=== PATIENT | female | born 1990 | race Caucasian/White ===

== ENCOUNTER 2020-03-30 10:52 | Inpatient (IN) | payer OTHER ==
--- NOTE | 2020-03-30 11:32 | BHS.RME ---
Substance Use & Tx History - Substance Use History Heroin Substance amount: 3 bags Frequency of use: Daily Substance route: Injection (ex: intravenous or skin popping) Date of Last Use: 03/30/20 Nicotine Substance amount: 4 cigs Frequency of use: Daily Substance route: Smoking Date of Last Use: 03/30/20 Cocaine- Powder Substance amount: $10-20 Frequency of use: Less than 3 times per week Date of Last Use: 03/29/20 Physical/Psych/Mental Status - Behavior General Behavior: Decreased activity Eye Contact: Normal - Cooperativeness Cooperativeness: Cooperative - Thinking Thought Processes: Tight Thought content: Future oriented - Physical Health Problems Is patient presently having any pain?: No Does patient presently have any injuries (include location): No Does patient currently have a fever: No COWS - Scale Resting Pulse: 1= [place] 81-100 Sweatin=Flushed/Facial Moisture Restless Observation: 1= Difficult to Sit Still Pupil Size: 0= Normal to Room Light Bone or Joint Aches: 1= Mild Discomfort Runny Nose/ Eye Tearin= Nasal Congestion GI Upset > 30mins: 0= None Tremor Observation: 2= Slight Tremor Visible Yawning Observation: 0= None Anxiety or Irritability: 1=Feels Anxious/Irritable Goose Flesh Skin: 0=Smooth Skin COWS Score: 9
--- NOTE | 2020-03-30 12:34 | HP ---
COWS - Scale Resting Pulse: 1= [place] 81-100 Sweatin=Flushed/Facial Moisture Restless Observation: 1= Difficult to Sit Still Pupil Size: 0= Normal to Room Light Bone or Joint Aches: 1= Mild Discomfort Runny Nose/ Eye Tearin= Nasal Congestion GI Upset > 30mins: 0= None Tremor Observation: 2= Slight Tremor Visible Yawning Observation: 0= None Anxiety or Irritability: 1=Feels Anxious/Irritable Goose Flesh Skin: 0=Smooth Skin COWS Score: 9 CIWA Score - Admission Criteria OASAS Guidelines: Admission for Medically Managed Detox: Requires at least one of the followin. CIWA greater than 12 2. Seizures within the past 24 hours 3. Delirium tremens within the past 24 hours 4. Hallucinations within the past 24 hours 5. Acute intervention needed for co occurring medical disorder 6. Acute intervention needed for co occurring psychiatric disorder 7. Severe withdrawal that cannot be handled at a lower level of care (continued vomiting, continued diarrhea, abnormal vital signs) requiring intravenous medication and/or fluids 8. Admitting History and Physical - Admission Chief Complaint: Opiod withdrawal sx History Source: Patient Limitations to Obtaining History: No Limitations - Past Medical History [employer]: Yes: Other (allergies) Pulmonary: Yes: Asthma ...LMP: 10/19/14 ...: No ENT: Yes: Allergic Rhinitis - Past Surgical History Past Surgical History: Yes: Tonsillectomy - Smoking History Smoking history: Former smoker Have you smoked in the past 12 months: Yes Aproximately how many cigarettes per day: 3 - Alcohol/Substance Use Hx Alcohol Use: Yes Number of Drinks Daily: 4 History of Substance Use: reports: Heroin Date of Last Use: 07/13/19 - Social History ADL: Independent History of Recent Travel: Yes () Admission [facility] Chief Complaint: Opiod withdrawal Sx Allergies/Adverse Reactions: Allergies Allergy/AdvReac Type Severity Reaction Status Date / Time No Known Allergies Allergy Verified 09/15/19 12:48 Exam Limitations: No Limitations - Ebola screening Have you traveled outside of the country in the last 21 days: No Have you had contact with anyone from an Ebola affected area: No Have you been sick,other than usual withdrawal symptoms: No Do you have a fever: No - Review of Systems Constitutional: Changes in sleep EENT: reports: Nose Congestion Respiratory: reports: No Symptoms reported Cardiac: reports: No Symptoms Reported GI: reports: No Symptoms Reported : reports: No Symptoms Reported Musculoskeletal: reports: Back Pain, Muscle Pain Integumentary: reports: Other (track black) Neuro: reports: Tremors Endocrine: reports: No Symptoms Reported Hematology: reports: No Symptoms Reported Psychiatric: reports: Orientated x3, Anxious Patient History - Patient Medical History Hx Anemia: No Hx Asthma: Yes Hx Chronic Obstructive Pulmonary Disease (COPD): No Hx Cancer: No Hx Cardiac Disorders: No Hx Congestive Heart Failure: No Hx Hypertension: No Hx Hypercholesterolemia: No Hx Pacemaker: No HX Cerebrovascular Accident: No Hx Seizures: No Hx Dementia: No Hx Diabetes: No Hx Gastrointestinal Disorders: No Hx Liver Disease: No Hx Genitourinary Disorders: No Hx Sexually Transmitted Disorders: No Hx Renal Disease (ESRD): No Hx Thyroid Disease: No Hx Human Immunodeficiency Virus (HIV): No Hx Hepatitis C: No Hx Depression: Yes Hx Suicide Attempt: No Hx Bipolar Disorder: No Hx Schizophrenia: No - Patient Surgical History Past Surgical History: Yes Other Surgical History: Tonsillectomy Anesthesia Reaction: No - PPD History Previous Implant?: Yes Documented Results: Negative w/o proof PPD to be Administered?: Yes - Reproductive History Patient is a Female of Child Bearing Age (11 -55 yrs old): Yes Last Menstrual Period: 10/19/14 Patient : No - Smoking Cessation Smoking history: Former smoker Have you smoked in the past 12 months: Yes Aproximately how many cigarettes per day: 3 Hx Chewing Tobacco Use: No Initiated information on smoking cessation: Yes 'Breaking Loose' booklet given: 03/30/20 - Substance & Tx. History Hx Alcohol Use: Yes Hx Substance Use: Yes Substance Use Type: Alcohol, Cocaine, Heroin Hx Substance Use Treatment: Yes - Substances abused Heroin Substance route: Injection Frequency: Daily Amount used: 3 bags Age of first use: 27 Date of last use: 03/30/20 Cocaine Substance route: Inhalation Frequency: 3-6 times per week Amount used: $10-$20 Age of first use: 17 Date of last use: 03/30/20 Admission Physical Exam BHS - Physical General Appearance: Yes: Disheveled, Tremorous, Anxious HEENTM: Yes: EOMI, Hearing grossly Normal, Normocephalic, Normal Voice, CHANDLER, Nasal Congestion Respiratory: Yes: Chest Non-Tender, Lungs Clear, No Respiratory Distress, No Accessory Muscle Use, Wheezing Neck: Yes: No masses,lesions,Nodules, Supple, Trachea in good position Breast: Yes: Breast Exam Deferred Cardiology: Yes: Regular Rhythm, Regular Rate, S1, S2 Abdominal: Yes: Normal Bowel Sounds, Non Tender, Soft Genitourinary: Yes: Within Normal Limits Back: Yes: Muscle Spasm Musculoskeletal: Yes: full range of Motion, Gait Steady, Back pain, Muscle Pain Extremities: Yes: Normal Inspection, Normal Range of Motion, Non-Tender, Tremors Neurological: Yes: teacher dancing II-XII NML intact, Fully Oriented, Alert, Motor Strength 5/5, Normal Response, Other (anxious) Integumentary: Yes: Normal Color, Dry, Warm, Track Black Lymphatic: Yes: Within Normal Limits - Diagnostic (1) Opioid dependence with withdrawal Current Visit: Yes Status: Acute (2) Allergic rhinitis Current Visit: Yes Status: Chronic Qualifiers: Allergic rhinitis seasonality: unspecified (3) Asthma Current Visit: Yes Status: Chronic Qualifiers: Asthma severity: mild Asthma complication type: unspecified (4) Alcohol use Current Visit: Yes Status: Chronic (5) Cocaine dependence Current Visit: Yes Status: Chronic Qualifiers: Substance use status: uncomplicated Qualified Code(s): F14.20 - Cocaine dependence, uncomplicated Cleared for Admission [facility] - Detox or Rehab [facility] Level of Care: Medically Managed Detox Regimen/Protocol: Methadone/Valium POC Urine test - Result Urine Test Results: Negative - NO line present Urine Drug Screen - Results Drug screen NEGATIVE: No Urine drug screen results: MULU-Cocaine, FEN-Fentanyl, MOP-Opiates Inpatient Rehab Admission - Rehab Decision to Admit Inpatient rehab admission?: No
[2020-03-30] MEDS ORDERED: ONDANSETRON *ODT* 4 MG TABLET SL ONE (12:37)
[2020-03-30] MEDS ORDERED: traZODone HCL 50 MG TABLET (FP) PO PRN (12:37)
[2020-03-30] MEDS ORDERED: MAG HYDROX/AL HYDROX/SIMETH 30 ML UNIT-DOSE CUP PO PRN (12:37)
[2020-03-30] MEDS ORDERED: NICOTINE POLACRILEX 2 MG GUM BUC PRN (12:37)
[2020-03-30] MEDS ORDERED: MENTHOL/PHENOL 1 EACH UD MM PRN (12:37)
[2020-03-30] MEDS ORDERED: BISMUTH SUBSALICYLATE 262 MG/15 ML BTL PO PRN (12:37)
[2020-03-30] MEDS ORDERED: IBUPROFEN 400 MG TABLET (FP) PO PRN (12:37)
[2020-03-30] MEDS ORDERED: MAGNESIUM HYDROX 2400MG/30ML ORAL SUSPENSION 30 ML CUP PO PRN (12:37)
[2020-03-30] MEDS ORDERED: ACETAMINOPHEN 325 MG TABLET (FP) PO PRN ×2 (12:37)
[2020-03-30] MEDS ORDERED: MAGNESIUM CITRATE 300 ML BOTTLE PO PRN (12:37)
[2020-03-30] MEDS ORDERED: METHADONE HCL 10 MG TABLET (FOR DETOX USE ONLY) PO ONE ×2 (12:44→17:00)
[2020-03-30] MEDS ORDERED: hydrOXYzine PAMOATE 25 MG CAPSULE (FP) PO SCH (14:00)
--- NOTE | 2020-03-30 14:40 | CONSULT ---
[facility] Psychiatric Consult - Data Date of interview: 03/30/20 Admission source: [facility] Identifying data: Ms Simon is a 29 years old single female. unemployed with no source of income, living with her family seeking detox treatment for alcohol, opioid and cocaine Substance Abuse History: Reports history of alcohol, heroin and cocaine use. Refer to addiction counselor's summary for further information Medical History: Significant for bronchial asthma, allergic rhinitis and tonsillectomy in 2001. Smokes 10 cigarettes weekly Psychiatric History: This is patient's first admission to this facility. She reports that her only psychiatric contact occured at age 17 when she was admitted to [facility] for depression. She said that she was diagnosed with Mood Disorder and started on psychotropic medication. She does not recall name of medication, however she has not followed up not taking any psychotropic medication after discharge. Reports that she is currently prescribed Trazadone 50 mg/hs for insomnia by her primary care physician at [facility]. Denies previous suicidal attempt. At present, denies experiencing any mood symptoms, S/H ideations. However, reports sleeping poorly and requests to continue Trazadone as prescribed Physical/Sexual Abuse/Trauma History: Denies history of abuse as a child or DV relationship as an adult Mental Status Exam - Mental Status Exam Alert and Oriented to: Time, Place, Person Cognitive Function: Fair Patient Appearance: Well Groomed Mood: Hopeful, Euthymic Patient Behavior: Cooperative Speech Pattern: Clear Voice Loudness: Normal Thought Process: Intact, Goal Oriented Thought Disorder: Not Present Hallucinations: Denies Suicidal Ideation: Denies Homicidal Ideation: Denies Insight/Judgement: Poor Sleep: Poorly Appetite: Fair Muscle strength/Tone: Normal Gait/Station: Normal Psychiatric Findings - Problem List ([place] 1, 2,3) (1) Mood disorder Current Visit: Yes Status: Chronic (2) Substance-induced sleep disorder Current Visit: Yes Status: Acute (3) Opioid dependence with withdrawal Current Visit: Yes Status: Acute (4) Cocaine dependence Current Visit: Yes Status: Acute Qualifiers: Substance use status: uncomplicated Qualified Code(s): F14.20 - Cocaine dependence, uncomplicated (5) Nicotine dependence Current Visit: Yes Status: Chronic (6) Allergic rhinitis Current Visit: Yes Status: Chronic Qualifiers: Allergic rhinitis seasonality: unspecified (7) Asthma Current Visit: Yes Status: Chronic Qualifiers: Asthma severity: mild Asthma complication type: unspecified - Initial Treatment Plan Initial Treatment Plan: 1) Continue Trazadone 50 mg po HS for insomnia. 2) Continue inpatient deetoxification
[2020-03-30] MEDS ORDERED: cloNIDine HCL 0.1 MG TABLET PO PRN (15:04)
[2020-03-30] MEDS ORDERED: hydrOXYzine PAMOATE 25 MG CAPSULE (FP) PO PRN (15:04)
--- NOTE | 2020-03-30 15:10 | PN ---
BHS Progress Note Note: pt last BP Vital Signs Temperature 97.1 F L 03/30/20 13:35 Pulse Rate 83 03/30/20 13:35 Respiratory Rate 16 03/30/20 13:35 Blood Pressure 93/67 03/30/20 13:35 O2 Sat by Pulse Oximetry (%) 97 03/30/20 13:35 encouraged to drink fluids. D/T low BP..... pt will be started with 20mg of methadone at 5pm and her taper will continue as ordered. continue to monitor.
--- NOTE | 2020-03-30 15:47 | EKG ---
Test Reason : Blood Pressure : / mmHG Vent. Rate : 060 BPM Atrial Rate : 060 BPM P-R Int : 116 ms QRS Dur : 098 ms QT Int : 420 ms P-R-T Axes : 009 040 020 degrees QTc Int : 420 ms NORMAL SINUS RHYTHM INCOMPLETE RIGHT BUNDLE BRANCH BLOCK BORDERLINE ECG NO PREVIOUS ECGS AVAILABLE Confirmed by THAI FAIRCHILD, RAJAN ([id number]) on 03/30/2020 3:46:30 PM Referred By: Confirmed By:RAJAN ANDRE MD
[2020-03-30 16:43] LABS: HEMATOCRIT 35.1 % (32.4-45.2); HEMOGLOBIN 11.3 GM/dL (10.7-15.3); MCH 28.5 pg (25.7-33.7); MCHC 32.3 g/dl (32.0-36.0); MEAN CELL VOLUME 88.5 fl (80-96); MEAN PLT VOLUME 8.8 fl (7.5-11.1); PLATELET COUNT 309 K/MM3 (134-434); RBC 3.97 M/mm3 (3.60-5.2); WHITE BLOOD COUNT 7.4 K/mm3 (4.0-10.0)
[2020-03-30 17:00] LABS: ALBUMIN 4.2 g/dl (3.4-5.0); BILIRUBIN,TOTAL 0.8 mg/dL (0.2-1); BLOOD UREA NITROGEN 8.5 mg/dL (7-18); CALCIUM 9.9 mg/dL (8.5-10.1); CREATININE 0.8 mg/dL (0.55-1.3); POTASSIUM 4.3 mmol/L (3.5-5.1); TOT PROT 7.5 g/dl (6.4-8.2)
[2020-03-30] MEDS: traZODone HCL 50 MG TABLET (FP) PO SCH (21:18)
[2020-03-30] MEDS: THIAMINE HCL 100 MG TABLET (FP) PO SCH (21:18)
[2020-03-30] MEDS: predniSONE 20 MG TABLET (UD) PO SCH (21:19)
[2020-03-30] MEDS: FLUTICASONE/SALMETEROL 100 MCG/50 MCG DISKUS IH SCH (21:19)
[2020-03-30] MEDS: MELATONIN 5 MG TABLETS PO SCH (23:17)
[2020-03-31] MEDS ORDERED: METHADONE (DETOX) 20 MG, METHADONE (DETOX) 5 MG PO ONE (10:00)
[2020-03-31] MEDS ORDERED: METHADONE HCL 5 MG TABLET (FOR DETOX USE ONLY) PO ONE (10:00)
[2020-03-31] MEDS: predniSONE 20 MG TABLET (UD) PO SCH ×2 (10:28→22:31)
[2020-03-31] MEDS: MONTELUKAST NA 10 MG TABLET PO SCH (10:28)
[2020-03-31] MEDS: PRENATAL VITAMINS W/ FOLIC ACID TABLET (FP) PO SCH (10:28)
[2020-03-31] MEDS: NICOTINE 7 MG/24 HOURS TOPICAL PATCH TD SCH (10:29)
[2020-03-31] MEDS: FLUTICASONE/SALMETEROL 100 MCG/50 MCG DISKUS IH SCH ×2 (10:30→22:31)
--- NOTE | 2020-03-31 16:01 | PN ---
BHS COWS - Scale Resting Pulse: 0= [place] 80 or Below Sweatin= Chills/Flushing Restless Observation: 1= Difficult to Sit Still Pupil Size: 0= Normal to Room Light Bone or Joint Aches: 1= Mild Discomfort Runny Nose/ Eye Tearin= Nasal Congestion GI Upset > 30mins: 0= None Tremor Observation of Outstretched Hands: 0= None Yawning Observation: 1= 1-2x During Session Anxiety or Irritability: 2=Irritable/Anxious Goose Flesh Skin: 3=Piloerection COWS Score: 10 BHS Progress Note (SOAP) Subjective: Fatigue, Anxious, Body Aches, Sweating. Objective: Patient A & O X 3, Observed Ambulating on Detox Unit Unassisted. In No Acute Distress. 03/31/20 16:00 Vital Signs Temperature 97.1 F L 03/31/20 13:01 Pulse Rate 68 03/31/20 13:01 Respiratory Rate 18 03/31/20 13:01 Blood Pressure 110/70 03/31/20 13:01 O2 Sat by Pulse Oximetry (%) 97 03/31/20 13:01 Laboratory Tests 03/30/20 03/30/20 03/30/20 12:45 12:45 12:45 WBC 7.4 RBC 3.97 Hgb 11.3 Hct 35.1 MCV 88.5 MCH 28.5 MCHC 32.3 RDW 15.0 Plt Count 309 MPV 8.8 Sodium 138 Potassium 4.3 Chloride 103 Carbon Dioxide 25 Anion Gap 10 BUN 8.5 Creatinine 0.8 Est GFR (CKD-EPI)AfAm 117.10 Est GFR (CKD-EPI)NonAf 101.04 Random Glucose 131 H Calcium 9.9 Total Bilirubin 0.8 AST 16 ALT 18 Alkaline Phosphatase 53 Total Protein 7.5 Albumin 4.2 Syphilis Serology Non-reactive COVID-19 (MANINDER) 03/30/20 14:40 WBC RBC Hgb Hct MCV MCH MCHC RDW Plt Count MPV Sodium Potassium Chloride Carbon Dioxide Anion Gap BUN Creatinine Est GFR (CKD-EPI)AfAm Est GFR (CKD-EPI)NonAf Random Glucose Calcium Total Bilirubin AST ALT Alkaline Phosphatase Total Protein Albumin Syphilis Serology COVID-19 (MANINDER) Not detected Lab Results noted. Assessment: 03/31/20 16:00 WITHDRAWAL SYMPTOMS. Plan: Continue Detox. Increase Daily Oral Water Intake.
[2020-03-31] MEDS: MELATONIN 5 MG TABLETS PO SCH (22:31)
[2020-03-31] MEDS: ALBUTEROL SO4 HFA INHALER IH PRN (22:31)
[2020-03-31] MEDS: traZODone HCL 50 MG TABLET (FP) PO SCH (22:31)
[2020-03-31] MEDS: THIAMINE HCL 100 MG TABLET (FP) PO SCH (22:31)
[2020-04-01] MEDS ORDERED: METHADONE HCL 10 MG TABLET (FOR DETOX USE ONLY) PO ONE (10:00)
[2020-04-01] MEDS ORDERED: METHADONE HCL 5 MG TABLET (FOR DETOX USE ONLY) PO ONE (10:00)
[2020-04-01] MEDS: predniSONE 20 MG TABLET (UD) PO SCH (10:41)
[2020-04-01] MEDS: FLUTICASONE/SALMETEROL 100 MCG/50 MCG DISKUS IH SCH ×2 (10:41→22:24)
[2020-04-01] MEDS: PRENATAL VITAMINS W/ FOLIC ACID TABLET (FP) PO SCH (10:41)
[2020-04-01] MEDS: MONTELUKAST NA 10 MG TABLET PO SCH (10:41)
[2020-04-01] MEDS: diazePAM 5 MG TABLET PO PRN ×2 (10:42→22:23)
[2020-04-01] MEDS: NICOTINE 7 MG/24 HOURS TOPICAL PATCH TD SCH (10:42)
[2020-04-01] MEDS: ALBUTEROL SO4 HFA INHALER IH PRN ×2 (10:42→22:24)
[2020-04-01] MEDS: METHOCARBAMOL 500 MG TABLET PO PRN ×2 (12:33→18:23)
--- NOTE | 2020-04-01 17:43 | PN ---
BHS COWS - Scale Resting Pulse: 0= [place] 80 or Below Sweatin= Chills/Flushing Restless Observation: 0= Sits Still Pupil Size: 0= Normal to Room Light Bone or Joint Aches: 1= Mild Discomfort Runny Nose/ Eye Tearin= Nasal Congestion GI Upset > 30mins: 1= Stomach Cramp Tremor Observation of Outstretched Hands: 1= Tremor [place], Not Seen Yawning Observation: 0= None Anxiety or Irritability: 1=Feels Anxious/Irritable Goose Flesh Skin: 0=Smooth Skin COWS Score: 6 BHS Progress Note (SOAP) Subjective: Interrupted sleep, feels tired Objective: 04/01/20 17:40 Last Vital Signs Temp Pulse Resp BP Pulse Ox 97.8 F 74 20 105/56 L 100 04/01/20 12:39 04/01/20 12:39 04/01/20 12:39 04/01/20 12:39 04/01/20 12:39 Laboratory Tests 03/30/20 03/30/20 03/30/20 12:45 12:45 12:45 WBC 7.4 RBC 3.97 Hgb 11.3 Hct 35.1 MCV 88.5 MCH 28.5 MCHC 32.3 RDW 15.0 Plt Count 309 MPV 8.8 Sodium 138 Potassium 4.3 Chloride 103 Carbon Dioxide 25 Anion Gap 10 BUN 8.5 Creatinine 0.8 Est GFR (CKD-EPI)AfAm 117.10 Est GFR (CKD-EPI)NonAf 101.04 Random Glucose 131 H Calcium 9.9 Total Bilirubin 0.8 AST 16 ALT 18 Alkaline Phosphatase 53 Total Protein 7.5 Albumin 4.2 Syphilis Serology Non-reactive COVID-19 (MANINDER) 03/30/20 14:40 WBC RBC Hgb Hct MCV MCH MCHC RDW Plt Count MPV Sodium Potassium Chloride Carbon Dioxide Anion Gap BUN Creatinine Est GFR (CKD-EPI)AfAm Est GFR (CKD-EPI)NonAf Random Glucose Calcium Total Bilirubin AST ALT Alkaline Phosphatase Total Protein Albumin Syphilis Serology COVID-19 (MANINDER) Not detected Labs reviewed: hyperglycemia Assessment: 04/01/20 17:41 Withdrawal sxs Noted with hyperglycemia Plan: Continue detox Encourage PO water intake Hyperglycemia: denies dm, could be r/t prednison, repeat fasting glucose, send A1c
[2020-04-01] MEDS: THIAMINE HCL 100 MG TABLET (FP) PO SCH (22:24)
[2020-04-01] MEDS: traZODone HCL 50 MG TABLET (FP) PO SCH (22:24)
[2020-04-01] MEDS: MELATONIN 5 MG TABLETS PO SCH (22:24)
[2020-04-02] MEDS ORDERED: METHADONE HCL 10 MG TABLET (FOR DETOX USE ONLY) PO ONE (10:00)
[2020-04-02] MEDS ORDERED: METHADONE (DETOX) 10 MG, METHADONE (DETOX) 5 MG PO ONE (10:00)
[2020-04-02] MEDS: FLUTICASONE/SALMETEROL 100 MCG/50 MCG DISKUS IH SCH ×2 (10:19→21:58)
[2020-04-02] MEDS: PRENATAL VITAMINS W/ FOLIC ACID TABLET (FP) PO SCH (10:20)
[2020-04-02] MEDS: METHOCARBAMOL 500 MG TABLET PO PRN ×2 (10:20→17:02)
[2020-04-02] MEDS: MONTELUKAST NA 10 MG TABLET PO SCH (10:20)
[2020-04-02] MEDS: NICOTINE 7 MG/24 HOURS TOPICAL PATCH TD SCH (10:20)
--- NOTE | 2020-04-02 12:03 | PN ---
BHS COWS - Scale Resting Pulse: 0= [place] 80 or Below Sweatin= Chills/Flushing Restless Observation: 0= Sits Still Pupil Size: 0= Normal to Room Light Bone or Joint Aches: 1= Mild Discomfort Runny Nose/ Eye Tearin= None GI Upset > 30mins: 1= Stomach Cramp Tremor Observation of Outstretched Hands: 0= None Yawning Observation: 0= None Anxiety or Irritability: 1=Feels Anxious/Irritable Goose Flesh Skin: 0=Smooth Skin COWS Score: 4 BHS Progress Note (SOAP) Subjective: feel constipated otherwise I feel good Objective: 04/02/20 12:02 Vital Signs Temperature 97.0 F L 04/02/20 05:11 Pulse Rate 50 L 04/02/20 05:11 Respiratory Rate 16 04/02/20 05:11 Blood Pressure 107/54 L 04/02/20 05:11 O2 Sat by Pulse Oximetry (%) 95 04/02/20 05:11 Laboratory Tests 03/30/20 03/30/20 03/30/20 12:39 12:45 12:45 WBC RBC Hgb Hct MCV MCH MCHC RDW Plt Count MPV Sodium 138 Potassium 4.3 Chloride 103 Carbon Dioxide 25 Anion Gap 10 BUN 8.5 Creatinine 0.8 Est GFR (CKD-EPI)AfAm 117.10 Est GFR (CKD-EPI)NonAf 101.04 Random Glucose 131 H Calcium 9.9 Total Bilirubin 0.8 AST 16 ALT 18 Alkaline Phosphatase 53 Total Protein 7.5 Albumin 4.2 POC Urine HCG, Qual Negative Syphilis Serology Non-reactive COVID-19 (MANINDER) 03/30/20 03/30/20 12:45 14:40 WBC 7.4 RBC 3.97 Hgb 11.3 Hct 35.1 MCV 88.5 MCH 28.5 MCHC 32.3 RDW 15.0 Plt Count 309 MPV 8.8 Sodium Potassium Chloride Carbon Dioxide Anion Gap BUN Creatinine Est GFR (CKD-EPI)AfAm Est GFR (CKD-EPI)NonAf Random Glucose Calcium Total Bilirubin AST ALT Alkaline Phosphatase Total Protein Albumin POC Urine HCG, Qual Syphilis Serology COVID-19 (MANINDER) Not detected aaox3 ambulating no acute distress Assessment: 04/02/20 12:02 withdrawals Plan: continue detox increase fluids colace and senna ordered.
[2020-04-02] MEDS: DOCUSATE SODIUM 100 MG CAPSULE (FP) PO SCH ×2 (14:27→21:58)
[2020-04-02 16:54] LABS: URINE APPEARANCE Clear; URINE BILIRUBIN Negative (NEGATIVE); URINE COLOR Yellow; URINE GLUCOSE (UA) Negative (NEGATIVE); URINE KETONE Trace (NEGATIVE); URINE LEUK ESTERASE Negative (NEGATIVE); URINE NITRITE Negative (NEGATIVE); URINE PROTEIN Negative (NEGATIVE); URINE UROBILINOGEN 0.2 mg/dL (0.2-1.0)
[2020-04-02] MEDS ORDERED: SENNOSIDES 8.6MG TABLET (FP) PO SCH (22:00)
[2020-04-02] MEDS: MELATONIN 5 MG TABLETS PO SCH (22:00)
[2020-04-02] MEDS: THIAMINE HCL 100 MG TABLET (FP) PO SCH (22:43)
[2020-04-02] MEDS: traZODone HCL 50 MG TABLET (FP) PO SCH (22:43)
[2020-04-03] MEDS ORDERED: METHADONE HCL 5 MG TABLET (FOR DETOX USE ONLY) PO ONE (06:00)
[2020-04-03 06:30] VITALS: BP 100/60; PULSE 63; TEMP 97.4
--- NOTE | 2020-04-03 06:51 | DS ---
[facility] Detox Discharge Summary Admission Date: 03/30/20 - Physical Exam Results Vital Signs: Vital Signs Temperature 97.4 F L 04/03/20 06:29 Pulse Rate 63 04/03/20 06:29 Respiratory Rate 18 04/03/20 06:29 Blood Pressure 100/60 04/03/20 06:29 O2 Sat by Pulse Oximetry (%) 99 04/03/20 06:29 - Treatment Hospital Course: Detox Protocol Followed, Detoxed Safely, Responded well, Discharged Condition Good - Medication Discharge Medications: Ambulatory Orders Montelukast Sodium [Singulair] 1 tab PO DAILY 09/15/19 Prednisone 20 mg 03/30/20 - AMA Did Patient Leave Against Medical Advice: No
[2020-04-03] MEDS: DOCUSATE SODIUM 100 MG CAPSULE (FP) PO SCH (07:20)
[2020-04-03] MEDS ORDERED: METHADONE HCL 10 MG TABLET (FOR DETOX USE ONLY) PO ONE (10:00)
[2020-04-04] MEDS ORDERED: METHADONE HCL 5 MG TABLET (FOR DETOX USE ONLY) PO ONE (06:00)
== END 2020-04-03 07:00 | disposition home or self-care (01) | DRG 773 ==
LOC: YASAS 10:52 → Y6N 12:47
PROVIDERS: ADMIT Allergy & Immunology; ATTEND Allergy & Immunology
PROC: HZ2ZZZZ Detoxification Services for Substance Abuse Treatment (ICD-10-PCS; principal; 2020-03-30)
DX: F11.23 Opioid dependence with withdrawal (principal); F10.20 Alcohol dependence, uncomplicated; F14.20 Cocaine dependence, uncomplicated; F17.210 Nicotine dependence, cigarettes, uncomplicated; F39 Unspecified mood [affective] disorder; F19.282 Other psychoactive substance dependence with psychoactive substance-induced sleep disorder; G47.00 Insomnia, unspecified; J45.909 Unspecified asthma, uncomplicated; R73.9 Hyperglycemia, unspecified; Z56.0 Unemployment, unspecified
CPT/HCPCS: 36415; 80053; 81003; 81025; 85027; 86780; 93005; 93010; U0003

== ENCOUNTER 2020-07-21 12:52 | Inpatient (IN) | payer OTHER ==
[2020-07-21] MEDS ORDERED: MAGNESIUM HYDROX 2400MG/30ML ORAL SUSPENSION 30 ML CUP PO PRN (15:18)
[2020-07-21] MEDS ORDERED: ACETAMINOPHEN 325 MG TABLET (FP) PO PRN ×2 (15:18)
[2020-07-21] MEDS ORDERED: IBUPROFEN 400 MG TABLET (FP) PO PRN (15:18)
[2020-07-21] MEDS ORDERED: cloNIDine HCL 0.1 MG TABLET PO PRN (15:18)
[2020-07-21] MEDS ORDERED: ONDANSETRON *ODT* 4 MG TABLET SL PRN (15:18)
[2020-07-21] MEDS ORDERED: METHADONE HCL 10 MG TABLET (FOR DETOX USE ONLY) PO ONE (15:18)
[2020-07-21] MEDS ORDERED: NICOTINE POLACRILEX 2 MG GUM BUC PRN (15:18)
[2020-07-21] MEDS ORDERED: MENTHOL/PHENOL 1 EACH UD MM PRN (15:18)
[2020-07-21] MEDS ORDERED: MAG HYDROX/AL HYDROX/SIMETH 30 ML UNIT-DOSE CUP PO PRN (15:18)
[2020-07-21] MEDS ORDERED: MAGNESIUM CITRATE 300 ML BOTTLE PO PRN (15:18)
[2020-07-21] MEDS ORDERED: BISMUTH SUBSALICYLATE 524 MG/30 ML UD PO PRN (15:18)
[2020-07-21 15:37] VITALS: BMI 24.9
[2020-07-21] MEDS: diazePAM 5 MG TABLET PO PRN (18:48)
[2020-07-21] MEDS: hydrOXYzine PAMOATE 25 MG CAPSULE (FP) PO SCH ×2 (19:25→22:32)
[2020-07-21] MEDS ORDERED: MASKS NR ONE (21:39)
[2020-07-21] MEDS: MELATONIN 5 MG TABLETS PO SCH (22:32)
[2020-07-21] MEDS: diazePAM 5 MG TABLET PO SCH (22:32)
[2020-07-21] MEDS: THIAMINE HCL 100 MG TABLET (FP) PO SCH (22:32)
[2020-07-22] MEDS: diazePAM 5 MG TABLET PO SCH ×4 (06:43→22:10)
[2020-07-22] MEDS: hydrOXYzine PAMOATE 25 MG CAPSULE (FP) PO SCH ×5 (06:43→22:09)
[2020-07-22] MEDS: ALBUTEROL SO4 HFA INHALER IH PRN ×2 (07:20→14:12)
[2020-07-22] MEDS ORDERED: METHADONE HCL 5 MG TABLET (FOR DETOX USE ONLY) PO ONE (10:00)
[2020-07-22] MEDS: NICOTINE 7 MG/24 HOURS TOPICAL PATCH TD SCH (10:29)
[2020-07-22] MEDS: PRENATAL VITAMINS W/ FOLIC ACID TABLET (FP) PO SCH (10:31)
[2020-07-22 11:15] LABS: URINE APPEARANCE TURBID; URINE BILIRUBIN NEGATIVE (NEGATIVE); URINE COLOR YELLOW; URINE GLUCOSE (UA) NEGATIVE (NEGATIVE); URINE KETONE NEGATIVE (NEGATIVE); URINE LEUK ESTERASE NEGATIVE (NEGATIVE); URINE NITRITE NEGATIVE (NEGATIVE); URINE PROTEIN NEGATIVE (NEGATIVE); URINE UROBILINOGEN 0.2 mg/dL (0.2-1.0)
[2020-07-22 11:16] LABS: POTASSIUM 4.1 mmol/L (3.5-5.1)
[2020-07-22 11:19] LABS: HEMATOCRIT 36.2 % (32.4-45.2); HEMOGLOBIN 11.9 GM/dL (10.7-15.3); MCH 28.7 pg (25.7-33.7); MCHC 32.9 g/dl (32.0-36.0); MEAN CELL VOLUME 87.2 fl (80-96); MEAN PLT VOLUME 9.5 fl (7.5-11.1); PLATELET COUNT 249 K/MM3 (134-434); RBC 4.15 M/mm3 (3.60-5.2); RDW 15.4 % (11.6-15.6); WHITE BLOOD COUNT 6.3 K/mm3 (4.0-10.0)
[2020-07-22 11:24] LABS: ALBUMIN 3.6 g/dl (3.4-5.0); BLOOD UREA NITROGEN 9.1 mg/dL (7-18)
[2020-07-22 11:27] LABS: CREATININE 0.7 mg/dL (0.55-1.3)
[2020-07-22 11:28] LABS: BILIRUBIN,TOTAL 0.3 mg/dL (0.2-1); TOT PROT 6.6 g/dl (6.4-8.2)
[2020-07-22] MEDS: METHOCARBAMOL 500 MG TABLET PO PRN ×2 (14:11→20:28)
[2020-07-22] MEDS: MONTELUKAST NA 10 MG TABLET PO SCH (22:09)
[2020-07-22] MEDS: MELATONIN 5 MG TABLETS PO SCH (22:10)
[2020-07-22] MEDS: traZODone HCL 50 MG TABLET (FP) PO SCH (22:10)
[2020-07-22] MEDS: THIAMINE HCL 100 MG TABLET (FP) PO SCH (22:10)
[2020-07-23] MEDS: diazePAM 5 MG TABLET PO SCH ×3 (05:59→22:10)
[2020-07-23] MEDS: hydrOXYzine PAMOATE 25 MG CAPSULE (FP) PO SCH ×5 (05:59→22:10)
[2020-07-23] MEDS ORDERED: METHADONE HCL 10 MG TABLET (FOR DETOX USE ONLY) PO ONE (10:00)
[2020-07-23] MEDS: NICOTINE 7 MG/24 HOURS TOPICAL PATCH TD SCH (10:05)
[2020-07-23] MEDS: METHOCARBAMOL 500 MG TABLET PO PRN ×3 (10:05→22:14)
[2020-07-23] MEDS: PRENATAL VITAMINS W/ FOLIC ACID TABLET (FP) PO SCH (10:05)
[2020-07-23] MEDS: SALMETEROL PO SCH (14:02)
[2020-07-23] MEDS: FLUTICASONE PROPION PO SCH (14:02)
[2020-07-23] MEDS: [UNRECOGNIZED DRUG - OTHER] PO SCH (14:02)
[2020-07-23] MEDS: FLUTICASONE/SALMETEROL 100 MCG/50 MCG DISKUS IH SCH (14:34)
[2020-07-23] MEDS: diazePAM 5 MG TABLET PO PRN (16:37)
[2020-07-23] MEDS: MONTELUKAST NA 10 MG TABLET PO SCH (22:10)
[2020-07-23] MEDS: traZODone HCL 50 MG TABLET (FP) PO SCH (22:11)
[2020-07-23] MEDS: THIAMINE HCL 100 MG TABLET (FP) PO SCH (22:13)
[2020-07-23] MEDS: MELATONIN 5 MG TABLETS PO SCH (23:22)
[2020-07-24] MEDS ORDERED: METHADONE HCL 5 MG TABLET (FOR DETOX USE ONLY) PO ONE (06:00)
[2020-07-24] MEDS: diazePAM 5 MG TABLET PO SCH ×2 (06:47→17:37)
[2020-07-24] MEDS: hydrOXYzine PAMOATE 25 MG CAPSULE (FP) PO SCH ×5 (06:47→22:23)
[2020-07-24] MEDS: FLUTICASONE/SALMETEROL 100 MCG/50 MCG DISKUS IH SCH (10:29)
[2020-07-24] MEDS: NICOTINE 7 MG/24 HOURS TOPICAL PATCH TD SCH (10:29)
[2020-07-24] MEDS: PRENATAL VITAMINS W/ FOLIC ACID TABLET (FP) PO SCH (10:29)
[2020-07-24] MEDS: METHOCARBAMOL 500 MG TABLET PO PRN ×2 (10:30→22:23)
[2020-07-24] MEDS: diazePAM 5 MG TABLET PO PRN (10:33)
[2020-07-24] MEDS: THIAMINE HCL 100 MG TABLET (FP) PO SCH (22:23)
[2020-07-24] MEDS: MONTELUKAST NA 10 MG TABLET PO SCH (22:23)
[2020-07-24] MEDS: traZODone HCL 50 MG TABLET (FP) PO SCH (22:23)
[2020-07-24] MEDS: MELATONIN 5 MG TABLETS PO SCH (22:24)
[2020-07-25] MEDS ORDERED: diazePAM 5 MG TABLET PO ONE (06:00)
[2020-07-25] MEDS: hydrOXYzine PAMOATE 25 MG CAPSULE (FP) PO SCH (06:26)
[2020-07-25] MEDS: METHOCARBAMOL 500 MG TABLET PO PRN (06:29)
[2020-07-25 09:01] VITALS: BP 91/41; PULSE 70; TEMP 97.5
[2020-07-25] MEDS ORDERED: METHADONE HCL 10 MG TABLET (FOR DETOX USE ONLY) PO ONE (10:00)
[2020-07-26] MEDS ORDERED: METHADONE HCL 5 MG TABLET (FOR DETOX USE ONLY) PO ONE (06:00)
== END 2020-07-25 10:25 | disposition home or self-care (01) | DRG 773 ==
LOC: YASAS 12:52 → Y6N 16:25
PROVIDERS: ADMIT Allergy & Immunology; ATTEND Allergy & Immunology
PROC: HZ2ZZZZ Detoxification Services for Substance Abuse Treatment (ICD-10-PCS; principal; 2020-07-21)
DX: F11.23 Opioid dependence with withdrawal (principal); F10.230 Alcohol dependence with withdrawal, uncomplicated; F14.20 Cocaine dependence, uncomplicated; F17.210 Nicotine dependence, cigarettes, uncomplicated; F51.05 Insomnia due to other mental disorder; F19.282 Other psychoactive substance dependence with psychoactive substance-induced sleep disorder; J45.20 Mild intermittent asthma, uncomplicated; Z56.0 Unemployment, unspecified
CPT/HCPCS: 36415; 80053; 81003; 81025; 85027; 86780; C9803; U0003